=== PATIENT | male | born 1985 | race Caucasian/White ===

== ENCOUNTER 2016-09-03 14:49 | Emergency (ER) | payer MEDICAID, OTHER ==
[~2016-09-03] VITALS: Wt 93.0 kg
[2016-09-03] MEDS ORDERED: NIZ30CR2 TOP (15:44)
--- NOTE | 2016-09-03 15:52 | ERD ---
ER Documentation Chief Complaint Date/Time DATE: 09/03/16 TIME: 15:49 Chief Complaint RASH TO ABDOMEN FOR 1 MONTH. GETTING WORSE. NO SOB HPI This is a 30-year-old male presenting to the emergency room complaining of a rash on his abdomen for the past month. Patient states it is nontender, states it is not itchy. Patient also states that he has a lesion on next his nose for 1 year that he wants to get checked out. Denies any tenderness. Denies fevers ROS All systems reviewed and are negative except as per history of present illness. Medications Home Meds Active Scripts Ketoconazole* (Nizoral*) 2%-30 Gm Cream..g., 1 APPLIC TOP BID for 14 Days, TUB Prov:YANA BROOKS PA-C 09/03/16 Physical Exam Vitals Vital Signs Date Time Temp Pulse Resp B/P Pulse Ox O2 Delivery O2 Flow Rate FiO2 09/03/16 14:53 98.4 102 21 141/81 98 Physical Exam General: WD/WN, in no apparent distress, non-toxic appearing HENT: NC/AT Eyes: Conjunctiva normal Neck: Supple Pulm: Clear to auscultation, normal labored breathing; no wheezing/rales/ rhonchi heard CV: Good capillary refill GI: Non-distended, no guarding Back: No masses Ext: No clubbing, cyanosis, or edema Neuro: Moves on all fours Skin: Erythematous oval circular patch on abdomen with central clearing Skin color/lesion on right cheek Normal turgor, color, and temperature. No ulcerations or rashes noted. Psych: Normal mood Procedures/MDM This is a 30-year-old male presenting to the emergency room with multiple skin complaints. Patient complains of a erythematous patch with central clearing on his abdomen most consistent with ringworm. He also complains of a lesion that has not changed his right cheek for the past year, differentials include but not limited to nevi versus sebaceous cyst versus basal cell carcinoma. I discussed with patient that he needs to follow-up with a hand tile maker for skin biopsy. I will low suspicion for cellulitis or bacteremia. Patient was given a prescription for ketoconazole cream to apply twice a day on the ringworm the next 2 weeks. He is to follow-up with a hand tile maker. Discussed return to the ER for any worsening symptoms. Patient understands and agrees with plan Departure Diagnosis: Primary Impression: Ringworm Additional Impression: Skin lesion Condition: Stable Patient Instructions: Types of Skin Cancer, Recognizing Skin Cancer, Fungal Infection, Skin [General], Ringworm, Skin Referrals: [facility] YOU HAVE RECEIVED A MEDICAL SCREENING EXAM AND THE RESULTS INDICATE THAT YOU DO NOT HAVE A CONDITION THAT REQUIRES URGENT TREATMENT IN THE EMERGENCY DEPARTMENT. FURTHER EVALUATION AND TREATMENT OF YOUR CONDITION CAN WAIT UNTIL YOU ARE SEEN IN YOUR DOCTORS OFFICE WITHIN THE NEXT 1-2 DAYS. IT IS YOUR RESPONSIBILITY TO MAKE AN APPOINTMENT FOR FOLOW-UP CARE. IF YOU HAVE A PRIMARY DOCTOR --you should call your primary doctor and schedule an appointment IF YOU DO NOT HAVE A PRIMARY DOCTOR YOU CAN CALL OUR PHYSICIAN REFERRAL HOTLINE AT IF YOU CAN NOT AFFORD TO SEE A PHYSICIAN YOU CAN CHOSE FROM THE FOLLOWING [facility] [address] [facility] [facility] [address] [facility] [facility] [address] [facility] [address] [facility] [address] [facility]. [facility]. [address] [place] [facility] URGENT CARE/SPECIALTIES Additional Instructions: FOLLOW UP WITH YOUR PRIMARY CARE PHYSICIAN TOMORROW.Return to this facility if you are not improving as expected. Take all medicines as directed. Return to this facility if you are not improving as expected. YANA BROOKS PA-C Sep 03, 2016 15:52
== END 2016-09-03 15:46 | disposition home or self-care (01) ==
LOC: E/R 14:49
DX: B35.9 Dermatophytosis, unspecified (principal); R20.8 Other disturbances of skin sensation
CPT/HCPCS: 99283